=== PATIENT | female | born 1950 | race Caucasian/White ===

== ENCOUNTER 2016-12-22 20:16 | Observation (INO) | payer OTHER ==
[2016-12-22] MEDS ORDERED: ASPIRIN 81 MG CHEW PO STA (20:38)
[2016-12-22] MEDS ORDERED: NITROGLYCERIN SL TABS 0.4 MG TAB SUBLINGUAL STA ×3 (20:38)
--- NOTE | 2016-12-22 20:44 | ED ---
General Adult HPI - General Chief complaint: Back Pain/Injury Stated complaint: Chest/Back Pain Time Seen by Provider: 12/22/16 20:27 Source: patient, RN notes reviewed Mode of arrival: wheelchair Limitations: no limitations - History of Present Illness Initial comments: Patient is a pleasant 66-year-old female presenting to the emergency department with chest and back discomfort. Onset of symptoms was around 5 or 6. Patient has tightness in her chest. Patient has an ache in her back behind the chest region on the left. Patient states she may feel somewhat short of breath. Dyspnea has resolved with oxygen and discomfort has improved. Patient was a little bit sweaty and nauseated earlier. No history of similar symptoms previously. Patient does have a difficult time describing her symptoms. Patient states discomfort is not severe however she has a difficult time getting comfortable. Patient feels better when she holds her fist behind her back. Patient tried some honey at home and questions if that may have helped. Patient is unclear if change make symptoms better or worse however while taking a deep breath she states symptoms did worsen. - Related Data Home Medications Medication Instructions Recorded Confirmed Multivitamins, Thera [Multivitamin 1 tab PO DAILY 12/22/16 12/22/16 (formulary)] [place]-3 Fatty Acids/Fish Oil [Fish 1 cap PO DAILY 12/22/16 12/22/16 Oil 1,000 mg Softgel] Thyroid, Pork [[place] Thyroid] 15 mg PO DAILY 12/22/16 12/22/16 Timolol 0.5% Ophth Soln [Timoptic 1 drop BOTH EYES BID 12/22/16 12/22/16 0.5% Ophth Soln] Allergies Allergy/AdvReac Type Severity Reaction Status Date / Time No Known Allergies Allergy Verified 12/22/16 20:54 Review of Systems ROS Statement: Those systems with pertinent positive or pertinent negative responses have been documented in the HPI. ROS Other: All systems not noted in ROS Statement are negative. Constitutional: Denies: fever Eyes: Denies: eye pain ENT: Denies: ear pain Respiratory: Reports: dyspnea. Denies: cough Cardiovascular: Reports: chest pain Endocrine: Denies: fatigue Gastrointestinal: Reports: nausea. Denies: abdominal pain Genitourinary: Denies: dysuria Musculoskeletal: Reports: back pain Skin: Denies: rash Neurological: Denies: weakness Past Medical History Past Medical History: Thyroid Disorder History of Any Multi-Drug Resistant Organisms: None Reported Additional Past Surgical History / Comment(s): cyst removal from hand Past Psychological History: No Psychological Hx Reported Smoking Status: Never smoker Past Alcohol Use History: None Reported Past Drug Use History: None Reported General Exam Limitations: no limitations General appearance: alert, in no apparent distress Head exam: Present: atraumatic Eye exam: Present: normal appearance, PERRL ENT exam: Present: normal oropharynx Neck exam: Present: normal inspection Respiratory exam: Present: normal lung sounds bilaterally. Absent: chest wall tenderness Cardiovascular Exam: Present: regular rate, normal rhythm Expanded Peripheral pulses: 2+: Radial (R), Radial (L), Dorsalis Pedis (R), Dorsalis Pedis (L) GI/Abdominal exam: Present: soft. Absent: tenderness Extremities exam: Present: normal inspection. Absent: pedal edema, calf tenderness Back exam: Present: normal inspection. Absent: tenderness Neurological exam: Present: alert Psychiatric exam: Present: normal affect, normal mood Skin exam: Present: normal color Course Vital Signs 12/22/16 12/22/16 12/22/16 20:24 21:00 22:34 Temperature 97.4 F L 98.0 F Pulse Rate 67 88 62 Respiratory 18 18 18 Rate Blood Pressure 173/77 147/72 145/69 O2 Sat by Pulse 98 98 Oximetry 12/23/16 00:01 Temperature 97.8 F Pulse Rate 59 L Respiratory 18 Rate Blood Pressure 150/79 O2 Sat by Pulse 99 Oximetry - Reevaluation(s) Reevaluation #1: 12/22/16 21:20 Patient states she did get transient improvement with nitroglycerin. Discomfort currently rated 3/10. EKG Findings - EKG Comments: EKG Findings:: Normal sinus rhythm 65. [place] 162. QRS 82. QT 418. QTC 434. Normal axis. Normal QRS. No acute ST change. Medical Decision Making - Medical Decision Making Patient reevaluated and resting comfortably in bed. Patient updated on results and plan. Case discussed in detail with Dr. Alcala, who will admit for hospital call. - Lab Data Result diagrams: 12/22/16 20:35 12/22/16 20:35 Lab Results 12/22/16 12/22/16 12/22/16 Range/Units 20:35 20:35 20:35 WBC 7.7 (3.8-10.6) k/uL RBC 3.92 (3.80-5.40) m/uL Hgb 12.3 (11.4-16.0) gm/dL Hct 35.6 (34.0-46.0) % MCV 90.8 (80.0-100.0) fL MCH 31.3 (25.0-35.0) pg MCHC 34.4 (31.0-37.0) g/dL RDW 14.6 (11.5-15.5) % Plt Count 218 (150-450) k/uL Neutrophils % 64 % Lymphocytes % 25 % Monocytes % 6 % Eosinophils % 2 % Basophils % 1 % Neutrophils # 4.9 (1.3-7.7) k/uL Lymphocytes # 1.9 (1.0-4.8) k/uL Monocytes # 0.4 (0-1.0) k/uL Eosinophils # 0.1 (0-0.7) k/uL Basophils # 0.1 (0-0.2) k/uL PT (9.0-12.0) sec INR (<1.2) APTT (22.0-30.0) sec D-Dimer (<0.60) mg/L FEU Sodium 142 (137-145) mmol/L Potassium 4.2 (3.5-5.1) mmol/L Chloride 110 H (98-107) mmol/L Carbon Dioxide 22 (22-30) mmol/L Anion Gap 10 mmol/L BUN 24 H (7-17) mg/dL Creatinine 0.97 (0.52-1.04) mg/dL Est GFR (MDRD) Af Amer >60 (>60 ml/min/1.73 sqM) Est GFR (MDRD) Non-Af 58 (>60 ml/min/1.73 sqM) Glucose 84 (74-99) mg/dL Calcium 9.3 (8.4-10.2) mg/dL Magnesium 1.9 (1.6-2.3) mg/dL Total Bilirubin 0.6 (0.2-1.3) mg/dL AST 133 H (14-36) U/L ALT 88 H (9-52) U/L Alkaline Phosphatase 76 (38-126) U/L Total Creatine Kinase 86 (30-135) U/L CK-MB (CK-2) 1.4 (0.0-2.4) ng/mL CK-MB (CK-2) Rel Index 1.6 Troponin I <0.012 (0.000-0.034) ng/mL Total Protein 7.0 (6.3-8.2) g/dL Albumin 4.3 (3.5-5.0) g/dL Amylase 56 (30-110) U/L Lipase 186 (23-300) U/L 12/22/16 Range/Units 20:35 WBC (3.8-10.6) k/uL RBC (3.80-5.40) m/uL Hgb (11.4-16.0) gm/dL Hct (34.0-46.0) % MCV (80.0-100.0) fL MCH (25.0-35.0) pg MCHC (31.0-37.0) g/dL RDW (11.5-15.5) % Plt Count (150-450) k/uL Neutrophils % % Lymphocytes % % Monocytes % % Eosinophils % % Basophils % % Neutrophils # (1.3-7.7) k/uL Lymphocytes # (1.0-4.8) k/uL Monocytes # (0-1.0) k/uL Eosinophils # (0-0.7) k/uL Basophils # (0-0.2) k/uL PT 10.0 (9.0-12.0) sec INR 1.0 (<1.2) APTT 22.9 (22.0-30.0) sec D-Dimer 0.39 (<0.60) mg/L FEU Sodium (137-145) mmol/L Potassium (3.5-5.1) mmol/L Chloride (98-107) mmol/L Carbon Dioxide (22-30) mmol/L Anion Gap mmol/L BUN (7-17) mg/dL Creatinine (0.52-1.04) mg/dL Est GFR (MDRD) Af Amer (>60 ml/min/1.73 sqM) Est GFR (MDRD) Non-Af (>60 ml/min/1.73 sqM) Glucose (74-99) mg/dL Calcium (8.4-10.2) mg/dL Magnesium (1.6-2.3) mg/dL Total Bilirubin (0.2-1.3) mg/dL AST (14-36) U/L ALT (9-52) U/L Alkaline Phosphatase (38-126) U/L Total Creatine Kinase (30-135) U/L CK-MB (CK-2) (0.0-2.4) ng/mL CK-MB (CK-2) Rel Index Troponin I (0.000-0.034) ng/mL Total Protein (6.3-8.2) g/dL Albumin (3.5-5.0) g/dL Amylase (30-110) U/L Lipase (23-300) U/L - Radiology Data Radiology results: report reviewed (Computed tomography scan of the chest shows no evidence of pulmonary embolism. Cholelithiasis.), image reviewed (Chest x- ray shows no acute process.) Disposition Clinical Impression: Chest pain Disposition: ADMITTED IP TO THIS [facility] Referrals: Suleiman Mari DO [Primary Care Provider] - 1-2 days Decision Time: 00:19
[2016-12-22 20:52] LABS: Basophils # (A) 0.1 k/uL (0-0.2); Basophils % (A) 1 %; CH 32.1; CHCM 35.5; Eosinophils # (A) 0.1 k/uL (0-0.7); Eosinophils % (A) 2 %; HCT 35.6 % (34.0-46.0); HDW 2.72; HGB 12.3 gm/dL (11.4-16.0); Luc % (Auto) 3; Lymphocytes # (A) 1.9 k/uL (1.0-4.8); Lymphocytes % (A) 25 %; MCH 31.3 pg (25.0-35.0); MCHC 34.4 g/dL (31.0-37.0); MCV 90.8 fL (80.0-100.0); Mean Platelet Volume 7.8; Monocytes # (A) 0.4 k/uL (0-1.0); Monocytes % (A) 6 %; Neutrophils # (A) 4.9 k/uL (1.3-7.7); Neutrophils % (A) 64 %; RBC 3.92 m/uL (3.80-5.40); RDW 14.6 % (11.5-15.5); WBC 7.7 k/uL (3.8-10.6); WBC (Perox) 7.58
[2016-12-22 21:06] LABS: ALT 88 U/L (9-52); AST 133 U/L (14-36); Alkaline Phosphatase 76 U/L (38-126); Amylase 56 U/L (30-110); Anion Gap 10 mmol/L; Blood Urea Nitrogen 24 mg/dL (7-17); Calcium 9.3 mg/dL (8.4-10.2); Carbon Dioxide 22 mmol/L (22-30); Chloride 110 mmol/L (98-107); Glucose 84 mg/dL (74-99); Magnesium 1.9 mg/dL (1.6-2.3); Non-African American GFR(MDRD) 58 (>60 ml/min/1.73 sqM); Partial Thromboplastin Time 22.9 sec (22.0-30.0); Potassium 4.2 mmol/L (3.5-5.1); Sodium 142 mmol/L (137-145); Total Bilirubin 0.6 mg/dL (0.2-1.3)
--- NOTE | 2016-12-22 21:11 | XR ---
EXAMINATION TYPE: XR chest 2V DATE OF EXAM: 12/22/2016 COMPARISON: NONE HISTORY: Chest and back pain with nausea and dyspnea TECHNIQUE: Frontal and lateral views of the chest are obtained. FINDINGS: There is no focal air space opacity, pleural effusion, or pneumothorax seen. The cardiac silhouette size is within normal limits. The osseous structures are intact. IMPRESSION: No acute cardiopulmonary process.
[2016-12-22 21:13] LABS: Creatine Kinase 86 U/L (30-135)
[2016-12-22] MEDS ORDERED: RX INFO: IV CONTRAST WAS GIVEN 1 EACH MISC MISCELLANE PRN (21:18)
[2016-12-22] MEDS ORDERED: NITROGLYCERIN OINT 1 INCH/GM PACKET TOPICAL STA (21:20)
[2016-12-22 21:26] LABS: Creatine Kinase MB 1.4 ng/mL (0.0-2.4); Troponin I <0.012 ng/mL (0.000-0.034)
--- NOTE | 2016-12-22 23:22 | CT ---
EXAM: CT Angiography Chest With Intravenous Contrast CLINICAL HISTORY: Chest and back pain with nausea and dyspnea TECHNIQUE: Axial computed tomographic angiography images of the chest with intravenous contrast using pulmonary embolism protocol. DLP is 392.80 mGy-cm. This CT exam was performed using one or more of the following dose reduction techniques: automated exposure control, adjustment of the mA and/or kV according to patient size, and/or use of iterative reconstruction technique. MIP reconstructed images were created and reviewed. COMPARISON: No relevant prior studies available. FINDINGS: Pulmonary arteries: Flow artifact seen within the pulmonary arteries. No definitive evidence of a pulmonary embolism. Aorta: No acute findings. No thoracic aortic aneurysm. Lungs: Minimal dependent atelectasis is seen involving both lower lobes. Linear atelectasis seen in the right middle lobe. No mass. Pleural space: Unremarkable. No significant effusion. No pneumothorax. Heart: Unremarkable. No cardiomegaly. No significant pericardial effusion. No evidence of RV dysfunction. Bones/joints: Mild degenerative changes seen throughout the osseous structures. No acute fracture. No dislocation. Soft tissues: Unremarkable. Lymph nodes: Unremarkable. No grossly enlarged lymph nodes. Gallbladder and bile ducts: Cholelithiasis is seen. Small stones appear to be within the gallbladder neck. Subtle haziness surrounds the gallbladder. IMPRESSION: No definitive evidence for pulmonary embolism. Cholelithiasis. Small stones appear to be within the gallbladder neck, which may be impacted. Subtle haziness surrounds the gallbladder. Correlate clinically for early acute cholecystitis. Right upper quadrant ultrasound may be performed for further evaluation.
[2016-12-23] MEDS ORDERED: NITROGLYCERIN SL TABS 0.4 MG TAB SUBLINGUAL PRN (00:21)
[2016-12-23 02:04] VITALS: BMI 34.8
--- NOTE | 2016-12-23 02:34 | US ---
EXAM: US Abdomen Limited, Right Upper Quadrant CLINICAL HISTORY: Reason: Pain TECHNIQUE: Real-time ultrasound of the right upper quadrant with image documentation. COMPARISON: CTA of the chest performed 12/22/2016. FINDINGS: Liver: Unremarkable. No mass. No intrahepatic bile duct dilation. Gallbladder: Mobile stones are seen within dependent gallbladder. No evidence of gallbladder wall thickening or pericholecystic fluid. Common bile duct: The CBD measures up to 6.8 mm in diameter, which is at the upper limits of normal in patient of this age. No stones. Pancreas: Unremarkable as visualized. Right kidney: Unremarkable. No stones. No solid mass. No hydronephrosis. IMPRESSION: 1. CBD measures up to 6.8 mm in diameter, which is at the upper limits of normal in patient of this age. Nonemergent MRCP may be obtained for further evaluation, if clinically indicated. 2. Cholelithiasis. No evidence of acute cholecystitis.
[2016-12-23 03:16] LABS: Creatine Kinase 69 U/L (30-135)
[2016-12-23 03:30] LABS: Troponin I <0.012 ng/mL (0.000-0.034)
[2016-12-23] MEDS ORDERED: NITROGLYCERIN OINT 1 INCH/GM PACKET TOPICAL SCH (06:00)
[2016-12-23 08:43] LABS: Creatine Kinase 64 U/L (30-135)
[2016-12-23 08:54] LABS: Troponin I <0.012 ng/mL (0.000-0.034)
--- NOTE | 2016-12-23 10:16 | P.CRDCN ---
History of Present Illness Consult date: 12/23/16 History of present illness: This is a 66-year-old female. Past medical history significant for hypothyroidism. Patient presents with complaints of pain started in the left mid back region. She states it felt like somebody hit her in the back with a baseball bat. The pain subsequently radiated around to the left chest. Described by the patient has a stabbing pain localized under the left breast. She states this episode occurred while she was sitting down at a restaurant getting ready to eat. She states she went outside to get some fresh air and became extremely diaphoretic, nauseous and short of breath she states that everything was tightening up and she couldn't get any air in. The pain persisted until she presented to the emergency room a couple of hours later and received sublingual nitroglycerin. At this time she is chest pain-free continues to complain of soreness to the left mid back region. The pain to the back is reproducible and tender upon palpation. She also complains of epigastric and right upper quadrant tenderness on deep palpation. She states she is frequently belching as well. She denies any history of CAD. She states she underwent a stress test in the late 's and it was normal. She has never seen a database security administrator for any reason. EKG done shows normal sinus mechanism, rate of 65 beats per minute with non- specific T-wave abnormality. Troponins are normal x3. Chest x-ray showed no acute cardiopulmonary process. CTA negative for PE. Abdominal ultrasound shows gallbladder thickening, surgery has been consulted. Review of Systems REVIEW OF SYSTEMS: Patient denies any chest discomfort. No shortness of breath. No diaphoresis. Denies headache, dizziness, blurred vision, double vision. No dyspnea on exertion. Patient denies any stomach discomfort. No nausea, vomiting. No hematochezia. No hematemesis. Denies any black stools or blood in his stools. No syncope. No palpitations. No cough. No recent fever or chills. No muscle weakness or numbness. Continues to complain of ongoing left mid-back pain, reproducible and tender. Past Medical History Past Medical History: Thyroid Disorder Additional Past Medical History / Comment(s): Hypoglecemia, bronchitis History of Any Multi-Drug Resistant Organisms: None Reported Additional Past Surgical History / Comment(s): cyst removal from hand Past Anesthesia/Blood Transfusion Reactions: No Reported Reaction Past Psychological History: No Psychological Hx Reported Smoking Status: Never smoker Past Alcohol Use History: None Reported Past Drug Use History: None Reported Medications and Allergies Home Medications Medication Instructions Recorded Confirmed Type Multivitamins, Thera [Multivitamin 1 tab PO DAILY 12/22/16 12/23/16 History (formulary)] [place]-3 Fatty Acids/Fish Oil [Fish 1 cap PO DAILY 12/22/16 12/23/16 History Oil 1,000 mg Softgel] Thyroid, Pork [[place] Thyroid] 15 mg PO DAILY 12/22/16 12/23/16 History Timolol 0.5% Ophth Soln [Timoptic 1 drop BOTH EYES BID 12/22/16 12/23/16 History 0.5% Ophth Soln] Allergies Allergy/AdvReac Type Severity Reaction Status Date / Time No Known Allergies Allergy Verified 12/23/16 01:43 Physical Exam Vitals: Vital Signs Temp Pulse Pulse Resp BP BP Pulse Ox 12/23/16 08:00 98.3 F 64 16 143/70 98 12/23/16 01:57 98.2 F 59 L 18 139/60 98 12/23/16 00:01 97.8 F 59 L 18 150/79 99 12/22/16 22:34 98.0 F 62 18 145/69 98 12/22/16 21:00 88 18 147/72 98 12/22/16 20:24 97.4 F L 67 18 173/77 Intake and Output 12/22/16 12/23/16 12/23/16 22:59 06:59 14:59 Other: Weight 95.254 kg 98 kg GENERAL: This is a 66-year-old female in no apparent distress at the time of my examination. HEENT: Head is atraumatic, normocephalic. Pupils are equal, round. Sclerae anicteric. Conjunctivae are clear. Mucous membranes of the mouth are moist. Neck is supple. There is no jugular venous distention. No carotid bruit is heard. LUNGS: Clear to auscultation no wheezes, rales or rhonchi. No chest wall tenderness is noted on palpation or with deep breathing. HEART: Regular rate and rhythm without murmurs, rubs or gallops. S1 and S2 heard. ABDOMEN: Soft, mild right upper quadrant tenderness on deep palpation. Bowel sounds are heard. No organomegaly noted. EXTREMITIES: 2+ peripheral pulses with no evidence of peripheral edema and no calf tenderness noted. NEUROLOGIC: Patient is awake, alert and oriented x3. Results 12/22/16 20:35 12/22/16 20:35 Cardiac Enzymes 12/22/16 12/22/16 12/23/16 Range/Units 20:35 20:35 02:26 AST 133 H (14-36) U/L CK-MB (CK-2) 1.4 1.0 (0.0-2.4) ng/mL Troponin I <0.012 <0.012 (0.000-0.034) ng/mL 12/23/16 Range/Units 07:27 AST (14-36) U/L CK-MB (CK-2) 1.0 (0.0-2.4) ng/mL Troponin I <0.012 (0.000-0.034) ng/mL Coagulation 12/22/16 Range/Units 20:35 PT 10.0 (9.0-12.0) sec APTT 22.9 (22.0-30.0) sec CBC 12/22/16 Range/Units 20:35 WBC 7.7 (3.8-10.6) k/uL RBC 3.92 (3.80-5.40) m/uL Hgb 12.3 (11.4-16.0) gm/dL Hct 35.6 (34.0-46.0) % Plt Count 218 (150-450) k/uL Comprehensive Metabolic Panel 12/22/16 Range/Units 20:35 Sodium 142 (137-145) mmol/L Potassium 4.2 (3.5-5.1) mmol/L Chloride 110 H (98-107) mmol/L Carbon Dioxide 22 (22-30) mmol/L BUN 24 H (7-17) mg/dL Creatinine 0.97 (0.52-1.04) mg/dL Glucose 84 (74-99) mg/dL Calcium 9.3 (8.4-10.2) mg/dL AST 133 H (14-36) U/L ALT 88 H (9-52) U/L Alkaline Phosphatase 76 (38-126) U/L Total Protein 7.0 (6.3-8.2) g/dL Albumin 4.3 (3.5-5.0) g/dL Current Medications Generic Name Dose Route Start Last Admin Trade Name Freq PRN Reason Stop Dose Admin Aspirin 325 mg 12/24/16 09:00 Aspirin PO DAILY MARÍA ELENA Miscellaneous Information 1 each 12/22/16 21:18 12/22/16 22:37 Rx Info: Iv Contrast Was Given MISCELLANE 12/24/16 21:18 1 each DAILY PRN Administration Per Protocol Multivitamins 1 each 12/23/16 12:00 Theragran PO 1200 MARÍA ELENA Nitroglycerin 1 inch 12/23/16 06:00 12/23/16 06:15 Nitro-Bid Oint TOPICAL Not Given Q6HR MARÍA ELENA Nitroglycerin 0.4 mg 12/23/16 00:21 Nitrostat SUBLINGUAL Q5M PRN Chest Pain Sodium Chloride 10 ml 12/23/16 09:00 Saline Flush IV BID MARÍA ELENA Thyroid 15 mg 12/23/16 09:00 [place] Thyroid PO 0630 MARÍA ELENA Timolol Maleate 1 drops 12/23/16 09:00 Timoptic BOTH EYES BID MARÍA ELENA Intake and Output 12/22/16 12/23/16 12/23/16 22:59 06:59 14:59 Other: Weight 95.254 kg 98 kg 12/22/16 20:35 12/22/16 20:35 EKG Interpretations (text) EKG indicates a normal sinus mechanism with nonspecific ST abnormality. Assessment and Plan Plan: ASSESSMENT 1. Chest pain, atypical PLAN Obtain an echocardiogram to assess LV function. Patient is very active physically, she states she hikes 4 miles 3 times per week. If she should need surgery to remove her gallbladder she remains an average risk. We will also add metoprolol 12.5 mg by mouth twice a day. Obtain Lexiscan tomorrow once a. NPO after midnight. Nurse Practitioner note has been reviewed, I agree with a documented findings and plan of care. Patient was seen and examined.
[2016-12-23] MEDS: TIMOLOL 0.5% OPHTH DROPS 5 ML BTL BOTH EYES SCH ×2 (10:30→19:54)
[2016-12-23] MEDS: THYROID, PORK 30 MG TAB PO SCH (10:31)
--- NOTE | 2016-12-23 10:51 | P.GSCN ---
<Franchesca Roman - Last Filed: 12/23/16 10:32> History of Present Illness Consult date: 12/23/16 Reason for Consult: Ultrasound abdomen, and bile duct upper limits of normal History of present illness: 66 year old female presented to the emergency room on December 23 with a chief complaint of developing left mid upper back pain radiating to the left breast related with a sensation of nausea and diaphoresis. Given the above clinical presentation patient presented to be evaluated. The attending has requested a surgical eval for workup for the above-mentioned symptoms. Patient states that for the last year on and off would get left mid back pain felt like a pressure she placed her fist to the area pressed it and it would cause her to belch the discomfort would decrease go away. Was concerned that with this episode felt a sensation of nausea with diaphoresis also a sensation of not being able to catch a breath. When questioning patient patient is denying any right abdominal discomfort. Patient has no significant past surgical history. Patient states last colonoscopy was within the last year done in the [facility] was told there was no abnormality. Patient states continues to have left upper back pressure feeling. Continues to report if she places her hand to the area causes belching. Patient states is a nonsmoker no alcohol and is an active individual is able to walk several miles a week with no chest pain or shortness of breath No family history of coronary artery disease Patient did have a computed tomography scan of the of the chest. No evidence of a pulmonary emboli. Small stones appear to be within the gallbladder neck which may be impacted. Correlate for early acute cholecystitis this was followed up with an ultrasound of the right upper quadrant in summary common bile duct measures up to 6.8 mm in diameter which is in the upper limits of normal. No evidence of acute cholecystitis Labs were reviewed the AST 133, ALT 88. Troponins were negative. Lipase 186. Amylase 56. Total bilirubin 0.6 Review of Systems Essentially unremarkable except as mentioned in the present illness Past Medical History Past Medical History: Thyroid Disorder Additional Past Medical History / Comment(s): Hypoglecemia, bronchitis History of Any Multi-Drug Resistant Organisms: None Reported Additional Past Surgical History / Comment(s): cyst removal from hand Past Anesthesia/Blood Transfusion Reactions: No Reported Reaction Past Psychological History: No Psychological Hx Reported Smoking Status: Never smoker Past Alcohol Use History: None Reported Past Drug Use History: None Reported Medications and Allergies Home Medications Medication Instructions Recorded Confirmed Type Multivitamins, Thera [Multivitamin 1 tab PO DAILY 12/22/16 12/23/16 History (formulary)] [place]-3 Fatty Acids/Fish Oil [Fish 1 cap PO DAILY 12/22/16 12/23/16 History Oil 1,000 mg Softgel] Thyroid, Pork [[place] Thyroid] 15 mg PO DAILY 12/22/16 12/23/16 History Timolol 0.5% Ophth Soln [Timoptic 1 drop BOTH EYES BID 12/22/16 12/23/16 History 0.5% Ophth Soln] Calcium Citrate/Vitamin D3 2 cap PO HS 12/23/16 12/23/16 History [Calcitrate + Vit D Caplet] Chromium Picolinate 500 mcg PO DAILY 12/23/16 12/23/16 History Allergies Allergy/AdvReac Type Severity Reaction Status Date / Time No Known Allergies Allergy Verified 12/23/16 01:43 Surgical - Exam Vital Signs Temp Pulse Resp BP 97.4 F L 67 18 173/77 12/22/16 20:24 12/22/16 20:24 12/22/16 20:24 12/22/16 20:24 GENERAL APPEARANCE: Pleasant 66-year-old female patient is alert, oriented, 3 in no acute distress. VITAL SIGNS: Reviewed HEENT: Head is normocephalic and atraumatic. Pupils are equal and reactive. The nares are patent. Oropharynx is clear without lesions. NECK: Supple without lymphadenopathy. Traches midline. HEART: S1, S2. Regular rate and rhythm. Denying chest pain no murmur LUNGS: No crackles or wheezes are heard. Adequate air movement bilaterally no wheezing no cough no shortness of breath ABDOMEN: Soft, mild right upper quadrant tenderness with deep palpitation no rebound .nondistended with good bowel sounds. No peritoneal signs. No palpable organomegaly or masses. Reports no nausea no vomiting no stool no difficulty in urinating Chest left upper back tenderness with palpitation EXTREMITIES: Normal skin color and turgor. No cyanosis, rash, ulceration, clubbing or edema. Radial pedal pulses are 2/4 bilaterally. NEUROLOGICAL: No focal deficits. Strength and sensation are grossly intact. Results - Labs 12/22/16 20:35 12/22/16 20:35 Abnormal Lab Results - Last 24 Hours (Table) 12/22/16 Range/Units 20:35 Chloride 110 H (98-107) mmol/L BUN 24 H (7-17) mg/dL AST 133 H (14-36) U/L ALT 88 H (9-52) U/L Diabetes panel 12/22/16 Range/Units 20:35 Sodium 142 (137-145) mmol/L Potassium 4.2 (3.5-5.1) mmol/L Chloride 110 H (98-107) mmol/L Carbon Dioxide 22 (22-30) mmol/L BUN 24 H (7-17) mg/dL Creatinine 0.97 (0.52-1.04) mg/dL Glucose 84 (74-99) mg/dL Calcium 9.3 (8.4-10.2) mg/dL AST 133 H (14-36) U/L ALT 88 H (9-52) U/L Alkaline Phosphatase 76 (38-126) U/L Total Protein 7.0 (6.3-8.2) g/dL Albumin 4.3 (3.5-5.0) g/dL Calcium panel 12/22/16 Range/Units 20:35 Calcium 9.3 (8.4-10.2) mg/dL Albumin 4.3 (3.5-5.0) g/dL Pituitary panel 12/22/16 Range/Units 20:35 Sodium 142 (137-145) mmol/L Potassium 4.2 (3.5-5.1) mmol/L Chloride 110 H (98-107) mmol/L Carbon Dioxide 22 (22-30) mmol/L BUN 24 H (7-17) mg/dL Creatinine 0.97 (0.52-1.04) mg/dL Glucose 84 (74-99) mg/dL Calcium 9.3 (8.4-10.2) mg/dL Adrenal panel 12/22/16 Range/Units 20:35 Sodium 142 (137-145) mmol/L Potassium 4.2 (3.5-5.1) mmol/L Chloride 110 H (98-107) mmol/L Carbon Dioxide 22 (22-30) mmol/L BUN 24 H (7-17) mg/dL Creatinine 0.97 (0.52-1.04) mg/dL Glucose 84 (74-99) mg/dL Calcium 9.3 (8.4-10.2) mg/dL Total Bilirubin 0.6 (0.2-1.3) mg/dL AST 133 H (14-36) U/L ALT 88 H (9-52) U/L Alkaline Phosphatase 76 (38-126) U/L Total Protein 7.0 (6.3-8.2) g/dL Albumin 4.3 (3.5-5.0) g/dL Assessment and Plan Plan: Impression Present on admission left upper back discomfort unclear etiology Hypothyroid on supplements Present on admission atypical chest pain with negative cardiac troponins 2 Elevated AST and ALT CAT scan chest gallstones within the gallbladder neck suspect cholelithiasis Present on admission right upper quadrant pain suspect due to cholelithiasis with small gallstones within the gallbladder neck as evident on computed tomography scan of the chest Ultrasound of the right upper quadrant gallbladder common bile duct dilated upper limits of normal Plan Cardiology recommendations noted appreciated and reviewed, echocardiogram to assess LV function, low dose beta etelvina, Lexiscan appropriate, Cardiology if cholecystectomy is indicated patients at average risk Pain control keep nothing by mouth until a decision is made regards to the timing of a lap cholecystectomy if indicated IV fluid for hydration Repeat labs in the morning Further recommendations pending DVT and GI prophylaxis The above impression and plan of care have been discussed and directed by signing physician. Franchesca Roman nurse practitioner acting as scribe for signing physician. <Alis Williamson - Last Filed: 12/23/16 21:35> Surgical - Exam Vital Signs Temp Pulse Resp BP 97.4 F L 67 18 173/77 12/22/16 20:24 12/22/16 20:24 12/22/16 20:24 12/22/16 20:24 Results - Labs 12/22/16 20:35 12/22/16 20:35 Assessment and Plan Plan: Patient examined. Incidental finding of gallstones. Undergoing cardiac work up. No indication for emergency cholecystectomy. Plan for lap gilberto as outpatient.
[2016-12-23] MEDS ORDERED: CHROMIUM PICOLINATE 500 MCG PO SCH (12:30)
--- NOTE | 2016-12-23 12:43 | P.HPIM ---
History of Present Illness H&P Date: 12/23/16 Chief Complaint: Chest pain This is 66-year-old female comes in the hospital with the acute onset pain that it initially started on the left paraspinal region in the thoracic spine radiated to the front underneath her breasts. Patient was evident part-time breathing at that time and also noted to have some nausea at doing that. Did also describe some clamminess pain did not radiate to her shoulders or her arms. The pain lasted for about 2 hours thereafter patient noted some relief with nitroglycerin sublingual tablets Patient comes in to the hospital for further evaluation EKG didn't did not reveal ST-T wave changes Cardiac enzymes 3 have been negative Patient has had an episode of chest pain 20 years ago for which she underwent a stress test which was negative Does not smoke no significant family history is reported Patient states that she is symptom-free at this time does complain of a tender point and the paraspinal region where the pain initially started Patient initially underwent a CT angiogram which was negative for pulmonary embolism. However gallstones were noted with some thickening a ultrasound was then done to rule out acute cholecystitis which did not reveal inflammatory changes however there is mild dilatation of CBD around 5.6 mm and gallstones. Review of Systems All systems: negative (Noted in HPI) Past Medical History Past Medical History: Thyroid Disorder Additional Past Medical History / Comment(s): Hypoglecemia, bronchitis History of Any Multi-Drug Resistant Organisms: None Reported Additional Past Surgical History / Comment(s): cyst removal from hand Past Anesthesia/Blood Transfusion Reactions: No Reported Reaction Past Psychological History: No Psychological Hx Reported Smoking Status: Never smoker Past Alcohol Use History: None Reported Past Drug Use History: None Reported Medications and Allergies Home Medications Medication Instructions Recorded Confirmed Type Multivitamins, Thera [Multivitamin 1 tab PO DAILY 12/22/16 12/23/16 History (formulary)] [place]-3 Fatty Acids/Fish Oil [Fish 1 cap PO DAILY 12/22/16 12/23/16 History Oil 1,000 mg Softgel] Thyroid, Pork [[place] Thyroid] 15 mg PO DAILY 12/22/16 12/23/16 History Timolol 0.5% Ophth Soln [Timoptic 1 drop BOTH EYES BID 12/22/16 12/23/16 History 0.5% Ophth Soln] Calcium Citrate/Vitamin D3 2 cap PO HS 12/23/16 12/23/16 History [Calcitrate + Vit D Caplet] Chromium Picolinate 500 mcg PO DAILY 12/23/16 12/23/16 History Allergies Allergy/AdvReac Type Severity Reaction Status Date / Time No Known Allergies Allergy Verified 12/23/16 01:43 Physical Exam Vitals: Vital Signs Temp Pulse Pulse Resp BP BP Pulse Ox 12/23/16 12:00 61 16 12/23/16 11:41 98.3 F 61 16 142/74 95 12/23/16 08:00 98.3 F 64 16 143/70 98 12/23/16 01:57 98.2 F 59 L 18 139/60 98 12/23/16 00:01 97.8 F 59 L 18 150/79 99 12/22/16 22:34 98.0 F 62 18 145/69 98 12/22/16 21:00 88 18 147/72 98 12/22/16 20:24 97.4 F L 67 18 173/77 Intake and Output 12/22/16 12/23/16 12/23/16 22:59 06:59 14:59 Other: Voiding Method Toilet Weight 95.254 kg 98 kg Physical exam Gen. appearance oriented 3 in no distress Neck is supple no JVD Lungs good air entry clear to auscultation no rhonchi or wheezing Heart S1-S2 heard regular rate and rhythm no murmurs appreciated Abdomen is soft nontender no organomegaly bowel sounds are intact Musculoskeletal around T10 paraspinal region there is a tender spot reproducible pain Neurologically cranial nerves II-12 grossly intact no focal motor or sensory deficits noted Skin no abnormalities appreciated Results CBC & Chem 7: 12/22/16 20:35 12/22/16 20:35 Labs: Abnormal Lab Results - Last 24 Hours (Table) 12/22/16 Range/Units 20:35 Chloride 110 H (98-107) mmol/L BUN 24 H (7-17) mg/dL AST 133 H (14-36) U/L ALT 88 H (9-52) U/L Thrombosis Risk Factor Assmnt - Choose All That Apply Any of the Below Risk Factors Present?: No Each Risk Factor Represents 2 Points: Age 61-74 years Thrombosis Risk Factor Assessment Total Risk Factor Score: 2 Thrombosis Risk Factor Assessment Level: Low Risk Assessment and Plan Plan: #1 atypical chest pain ACS is ruled out #2 hypothyroidism #3 obesity with a BMI of 34.9 #4 incidental findings of cholelithiasis Plan Patient has vague symptoms of chest pain however is physically active and walks about 4 miles 3 times a week without any recurrence of the symptoms it appears he likely is musculoskeletal type of pain however patient did have some diaphoresis hence a stress test would be indicated. Did discuss her general surgery as well patient would like to follow up on an outpatient basis did discuss with cholelithiasis there is always a chance of gallstone pancreatitis patient verbalized understanding this would like a stress test to be done thereafter states that she would follow up with her doctor
--- NOTE | 2016-12-23 13:22 | ECHOF ---
Referral Reason:pain/shortness of breath/post procedure MEASUREMENTS -------- HEIGHT: 167.6 cm WEIGHT: 98.0 kg BP: 143/70 IVSd: 1.6 cm (0.6 - 1.1) LVIDd: 2.4 cm (3.9 - 5.3) LVPWd: 1.4 cm (0.6 - 1.1) IVSs: 1.9 cm LVIDs: 1.2 cm LVPWs: 1.8 cm Ao Diam: 2.9 cm (2.0 - 3.7) AV Cusp: 1.8 cm (1.5 - 2.6) LA Diam: 2.4 cm (2.7 - 3.8) MV EXCURSION: 18.221 mm (> 18.000) MV EF SLOPE: 75 mm/s (70 - 150) EPSS: 0.2 cm MV E [place]: 0.79 m/s MV DecT: 293 ms MV A [place]: 0.90 m/s MV E/A Ratio: 0.89 RAP: 5.00 mmHg RVSP: 10.90 mmHg FINDINGS -------- Sinus rhythm. This was a technically good study. There is moderate concentric left ventricular hypertrophy. Overall left ventricular systolic function is normal with, an EF between 55 - 60 %. The right ventricle is normal in size and function. The left atrium is normal in size. The right atrium is normal in size. The aortic valve is trileaflet, and appears structurally normal. No aortic stenosis or regurgitation. There is trace mitral regurgitation. Trace tricuspid regurgitation present. The right ventricular systolic pressure, as measured by Doppler, is 10.90mmHg. Pulmonic valve appears structurally normal. The aortic root size is normal. The pericardium is normal. CONCLUSIONS -------- 1. Sinus rhythm. 2. Trace tricuspid regurgitation present. 3. The right ventricular systolic pressure, as measured by Doppler, is 10.90mmHg. 4. Pulmonic valve appears structurally normal. 5. The aortic root size is normal. 6. The pericardium is normal. 7. This was a technically good study. 8. There is moderate concentric left ventricular hypertrophy. 9. Overall left ventricular systolic function is normal with, an EF between 55 - 60 %. 10. The right ventricle is normal in size and function. 11. The left atrium is normal in size. 12. The right atrium is normal in size. 13. The aortic valve is trileaflet, and appears structurally normal. No aortic stenosis or regurgitation. 14. There is trace mitral regurgitation. SCREEN MAKING TECHNICIAN: Irina Rodriguez RDCS
[2016-12-23] MEDS: METOPROLOL TARTRATE 12.5 MG TAB PO SCH ×2 (13:24→22:36)
[2016-12-23] MEDS: MULTIVITAMINS, THERA 1 EACH TAB PO SCH (13:28)
[2016-12-23] MEDS: CALCIUM CARB-VIT D 500MG-200UN 1 EACH TAB PO SCH ×2 (19:53→22:36)
[2016-12-23] MEDS: HEPARIN SODIUM,PORCINE 5,000 UNIT/ML 1 ML VIAL SQ SCH (22:36)
[2016-12-24 01:55] LABS: Cholesterol 189 mg/dL (<200); HDL Cholesterol 51 mg/dL (40-60)
[2016-12-24] MEDS ORDERED: AMINOPHYLLINE 500 MG/20 ML VIAL IV PRN (05:00)
[2016-12-24] MEDS ORDERED: REGADENOSON 0.4 MG/5 ML SYRINGE IV ONE (09:00)
--- NOTE | 2016-12-24 09:54 | NM ---
EXAMINATION TYPE: NM stress cardiolite complete DATE OF EXAM: 12/24/2016 COMPARISON: NONE HISTORY: Precordial chest pain and abnormal EKG TECHNIQUE: After the intravenous administration of 10.9 mCi Tc 99m Sestamibi - Rest images obtained 55 minutes post injection. The patient exercised using a KATHY protocol and 1 minute prior to peak exercise was injected with 27.2 mCi Tc 99m Sestamibi - Stress images obtained 10 minutes post injecti on. FINDINGS: Targeted heart rate was achieved during performance of the study. Review of stress and rest SPECT pelon ges demonstrates predominantly fixed defect anteroseptal wall. Vague area of decreased perfusion ante rior lateral wall on stress images may reflect stress-induced ischemia. Gated analysis shows normal w all motion with an estimated left ventricular ejection fraction of 63 %. IMPRESSION: Vague area of decreased perfusion anterior lateral wall on stress images may reflect stress-induced i schemia.
[2016-12-24] MEDS: METOPROLOL TARTRATE 12.5 MG TAB PO SCH ×2 (09:56→21:02)
[2016-12-24] MEDS: ASPIRIN 325 MG TAB PO SCH (09:56)
[2016-12-24] MEDS: THYROID, PORK 30 MG TAB PO SCH (09:56)
[2016-12-24] MEDS: HEPARIN SODIUM,PORCINE 5,000 UNIT/ML 1 ML VIAL SQ SCH ×2 (09:56→21:02)
[2016-12-24] MEDS: TIMOLOL 0.5% OPHTH DROPS 5 ML BTL BOTH EYES SCH ×2 (09:57→20:55)
[2016-12-24] MEDS: amLODIPine 5 MG TAB PO SCH (10:04)
--- NOTE | 2016-12-24 12:38 | EST ---
EXERCISE STRESS AGE:: 66 SEX:: F HT:: 5'6" WT:: 216 PROTOCOL:: Shmuel Cardiolite Stress Test STAGE:: 2 DURATION OF EXERCISE:: 5:26 HEART RATE REST:: 68 BLOOD PRESSURE REST:: 118/81 MAXIMUM HEART RATE ACHIEVED:: 148 MAXIMUM BLOOD PRESSURE:: 253/91 85% MPHR:: 133 100% MPHR:: 146 METS:: 4.7 INDICATIONS:: Chest pain. CLINICAL INFORMATION:: Baseline EKG revealed a sinus mechanism with LVH by voltage criteria and nonspecific ST abnormality. Patient walked on a standard Shmuel protocol for 5 minutes 26 seconds. Developed hypertensive response, complained of some wheezing but did not have angina. EKG remained inconclusive. There was no significant arrhythmia. Maximal heart rate was well above 85% of predicted maximal at 148 beats per minute. By EKG criteria, this is a inconclusive stress test because of resting EKG changes. Patient did not have any clear-cut angina. She had a hypertensive response to exercise. The nuclear scan results which are more support will be reported by the radiologist. DELL / YAELN: [id number] /
[2016-12-24] MEDS: MULTIVITAMINS, THERA 1 EACH TAB PO SCH (13:19)
--- NOTE | 2016-12-24 13:25 | P.PN ---
Progress Note - Text Patient seen this morning resting in bed. Patient is scheduled tomorrow to have a heart catheterization by cardiology service for an abnormal Lexiscan. Did discuss with the patient that the the incidental findings of gallstones could be followed in the outpatient setting with possible laparoscopic cholecystectomy indicated. There was no indication for emergency cholecystectomy at this time we'll sign off patient will be seen in Dr. ching office in the outpatient setting in 2-3 weeks The above impression and plan of care have been discussed and directed by signing physician. Franchesca Roman nurse practitioner acting as scribe for signing physician.
[2016-12-24] MEDS ORDERED: ALPRAZolam 0.25 MG TAB PO PRN (14:32)
[2016-12-24] MEDS ORDERED: ALPRAZolam 0.5 MG TAB PO PRN (14:32)
[2016-12-24] MEDS ORDERED: SODIUM CHLORIDE 0.9% 1,000 ML in EMPTY BAG 1 BAG IV ONE (14:32)
--- NOTE | 2016-12-24 18:21 | P.PN ---
Subjective This is 66-year-old female comes in the hospital with the acute onset pain that it initially started on the left paraspinal region in the thoracic spine radiated to the front underneath her breasts. Patient was evident part-time breathing at that time and also noted to have some nausea at doing that. Did also describe some clamminess pain did not radiate to her shoulders or her arms. The pain lasted for about 2 hours thereafter patient noted some relief with nitroglycerin sublingual tablets Patient comes in to the hospital for further evaluation EKG didn't did not reveal ST-T wave changes Cardiac enzymes 3 have been negative Patient has had an episode of chest pain 20 years ago for which she underwent a stress test which was negative Does not smoke no significant family history is reported Patient states that she is symptom-free at this time does complain of a tender point and the paraspinal region where the pain initially started Patient initially underwent a CT angiogram which was negative for pulmonary embolism. However gallstones were noted with some thickening a ultrasound was then done to rule out acute cholecystitis which did not reveal inflammatory changes however there is mild dilatation of CBD around 5.6 mm and gallstones. 12/24/2016 Patient denies having any recurrence of symptoms Patient was only able to walk about 5 minutes and 30 seconds on modified Shmuel protocol apparently patient was noted to have increased blood pressure and some dyspnea. Physical exam Gen. appearance oriented 3 in no distress Neck is supple no JVD Lungs good air entry clear to auscultation no rhonchi or wheezing Heart S1-S2 heard regular rate and rhythm no murmurs appreciated Abdomen is soft nontender no organomegaly bowel sounds are intact Musculoskeletal around T10 paraspinal region there is a tender spot reproducible pain Neurologically cranial nerves II-12 grossly intact no focal motor or sensory deficits noted Skin no abnormalities appreciated Assessment and Plan Plan: #1 atypical chest pain ACS is ruled out #2 hypothyroidism #3 obesity with a BMI of 34.9 #4 incidental findings of cholelithiasis Plan Nuclear stress was noted to have some abnormality. Poor exercise tolerance Patient is anxious about undergoing the stress test did discuss the importance of ruling out underlying coronary disease Vitals are stable Objective - Vital Signs Vital signs: Vital Signs Temp 98.3 F 12/24/16 15:54 Pulse 67 12/24/16 15:54 Resp 18 12/24/16 15:54 BP 140/69 12/24/16 15:54 Pulse Ox 96 12/24/16 15:54 Intake & Output 12/23/16 12/24/16 12/24/16 18:59 06:59 18:59 Intake Total 480 240 Balance 480 240 Weight 98 kg Intake: Oral 480 240 Other: Voiding Method Toilet Toilet Toilet # Voids 1 - Labs CBC & Chem 7: 12/22/16 20:35 12/22/16 20:35 Labs: Abnormal Lab Results - Last 24 Hours (Table) 12/23/16 Range/Units 07:27 Triglycerides 226 H (<150) mg/dL
--- NOTE | 2016-12-24 19:29 | PN ---
PROGRESS NOTE This is a 66-year-old lady whom I saw yesterday. She presented with very nondescript atypical symptoms. She had gallbladder issues as well. However, she was pain-free. Troponins were unremarkable. I performed a stress test today. EKG part of the stress test was inconclusive. She had hypertensive response per the nuclear study suggesting lateral wall ischemia. I discussed the findings in detail with the patient, and I advised her to have coronary angiography as an option. The second option was to pursue medical therapy with aspirin and beta blockers and have her see her own doctor in the [facility]. However, after some deliberation she wishes to proceed with cardiac cath, fully understands the risks, benefits, options and rationale related to the cardiac cath and possible PCI. I have asked her to be placed on beta etelvina and Norvasc, but she is reluctant to take this. She does not want to take any additional medicines other than her [place] Thyroid. I suspect her blood pressure control is suboptimal. After due discussion, patient understands all details and wishes proceed with cardiac cath. She is fully aware of the risks, benefits, options, and the procedure will be performed tomorrow at 9 a.m. In the interim, we will leave her on IV fluids, and I have encouraged her to take the beta etelvina, aspirin and Norvasc. She does not want to take any statin agents at this time. PHYSICAL EXAMINATION: Vital signs are stable. S1, S2 heard normally. Lungs are clear. Abdomen and lower extremity exam was unchanged. MMODL / IJN: [id number] /
[2016-12-24 19:48] VITALS: RESP 16
[2016-12-24] MEDS ORDERED: ATORVASTATIN 80 MG TAB PO SCH (21:00)
[2016-12-24] MEDS: CALCIUM CARB-VIT D 500MG-200UN 1 EACH TAB PO SCH (21:02)
[2016-12-25] MEDS: ASPIRIN 325 MG TAB PO SCH (06:43)
[2016-12-25] MEDS ORDERED: SODIUM CHLORIDE 0.9% 1,000 ML IV ONE (09:02)
[2016-12-25] MEDS ORDERED: MIDAZOLAM 2 MG/2 ML VIAL IV ONE (09:38)
[2016-12-25] MEDS ORDERED: diphenhydrAMINE 50 MG/ML 1 ML VIAL IVP ONE (09:38)
[2016-12-25] MEDS ORDERED: LIDOCAINE 2% INJ 20 MG/ML SQ ONE (09:45)
[2016-12-25] MEDS: VERAPAMIL SYRINGE (5 MG/10 ML) INTRAARTER ONE ×2 (09:50→10:03)
[2016-12-25] MEDS ORDERED: HEPARIN SODIUM 1,000 UN/ML (10ML VL) IV ONE (09:51)
[2016-12-25] MEDS ORDERED: fentaNYL (PF) 50 MCG/ML 2 ML AMP IV ONE (09:53)
[2016-12-25] MEDS ORDERED: IOHEXOL 350 MG/ML 100 ML BOTTLE INJ ONE (10:03)
[2016-12-25] MEDS: THYROID, PORK 30 MG TAB PO SCH (10:37)
[2016-12-25] MEDS ORDERED: SODIUM CHLORIDE 0.9% 1,000 ML IV SCH (11:00)
[2016-12-25] MEDS: METOPROLOL TARTRATE 12.5 MG TAB PO SCH (11:27)
[2016-12-25] MEDS: amLODIPine 5 MG TAB PO SCH (11:27)
[2016-12-25] MEDS: HEPARIN SODIUM,PORCINE 5,000 UNIT/ML 1 ML VIAL SQ SCH (11:28)
[2016-12-25] MEDS ORDERED: METOPROLOL TARTRATE 12.5 MG TAB PO SCH (11:30)
[2016-12-25] MEDS: TIMOLOL 0.5% OPHTH DROPS 5 ML BTL BOTH EYES SCH (13:04)
--- NOTE | 2016-12-25 14:18 | P.PN ---
Subjective This is a 66-year-old female who is going for cardiac catheterization today after a positive cardiolyte test yesterday. She presented with nondescript, atypical symptoms. Surgery was also seeing the pt for gallbladder concerns as well. At this time they have decided to forego any further surgical intervention until this cardiac concern has been addressed. The procedure has been explained to the patient at length and questions answered appropriately. The patient verbalizes many concerns regarding medications and does not want to take anything. She prefers the holistic approach and wants to consult with her PCP prior to adding anything. The risks of uncontrolled hypertension have been explained to the patient with verbalized understanding. Objective - Vital Signs Vital signs: Vital Signs Temp 98.1 F 12/25/16 10:30 Pulse 67 12/25/16 12:15 Resp 16 12/25/16 10:30 BP 148/89 12/25/16 12:15 Pulse Ox 99 12/25/16 12:15 Intake & Output 12/24/16 12/25/16 12/25/16 18:59 06:59 18:59 Intake Total 600 200 Balance 600 200 Weight 98 kg Intake: IV 200 Oral 600 Other: Voiding Method Toilet Toilet Toilet # Voids 1 1 - Exam GENERAL: Well-appearing, well-nourished and in no acute distress. NECK: Supple without JVD or thyromegaly. LUNGS: Breath sounds clear to auscultation bilaterally. Respiration equal and unlabored. No wheezes, rales or rhonchi. HEART: Regular rate and rhythm without murmurs, rubs or gallops. S1 and S2 heard. EXTREMITIES: Normal range of motion, no edema. No clubbing or cyanosis. Peripheral pulses intact and strong. - Labs CBC & Chem 7: 12/22/16 20:35 12/22/16 20:35 Assessment and Plan Plan: ASSESSMENT 1. Chest pain, atypical. Positive nuclear stress test. 2. Essential hypertension, uncontrolled with signs of cardiac damage. LVH on echo. PLAN I have discussed the risks, benefits and alternative therapies for the above- mentioned procedure and for both sedation/analgesia as well as necessary blood product administration, if indicated, as they pertain to this patient. The patient has indicated understanding and acceptance of the risks and procedures discussed. She will undergo cardiac catheterization today. If this is normal she can be discharged home 6 hours after hemostasis. She has been advised again of the importance of taking medications as prescribed. Nurse Practitioner note has been reviewed, I agree with a documented findings and plan of care. Patient was seen and examined.
[2016-12-25 15:48] VITALS: BP 142/77; PULSE 59; TEMP 98.8
[2016-12-25] MEDS: MULTIVITAMINS, THERA 1 EACH TAB PO SCH (17:27)
--- NOTE | 2016-12-25 19:19 | P.DS ---
Providers Date of admission: 12/23/16 00:21 Attending physician: Mirta Alcala Consults: 12/23/16 00:21 Consult Physician Urgent Consulting Provider: Alis Williamson Consult Reason/Comments: Cholelithiasis Do you want consulting provider notified?: Yes Consult Physician Urgent Consulting Provider: Jaxson Nowak Consult Reason/Comments: cp Do you want consulting provider notified?: Yes Primary care physician: Suleiman Mari Hospital Course: This is 66-year-old female comes in the hospital with the acute onset pain that it initially started on the left paraspinal region in the thoracic spine radiated to the front underneath her breasts. Patient was evident part-time breathing at that time and also noted to have some nausea at doing that. Did also describe some clamminess pain did not radiate to her shoulders or her arms. The pain lasted for about 2 hours thereafter patient noted some relief with nitroglycerin sublingual tablets Patient comes in to the hospital for further evaluation EKG didn't did not reveal ST-T wave changes Cardiac enzymes 3 have been negative Patient has had an episode of chest pain 20 years ago for which she underwent a stress test which was negative Does not smoke no significant family history is reported Patient states that she is symptom-free at this time does complain of a tender point and the paraspinal region where the pain initially started Patient initially underwent a CT angiogram which was negative for pulmonary embolism. However gallstones were noted with some thickening a ultrasound was then done to rule out acute cholecystitis which did not reveal inflammatory changes however there is mild dilatation of CBD around 5.6 mm and gallstones. 12/24/2016 Patient denies having any recurrence of symptoms Patient was only able to walk about 5 minutes and 30 seconds on modified Shmuel protocol apparently patient was noted to have increased blood pressure and some dyspnea. Physical exam Gen. appearance oriented 3 in no distress Neck is supple no JVD Lungs good air entry clear to auscultation no rhonchi or wheezing Heart S1-S2 heard regular rate and rhythm no murmurs appreciated Abdomen is soft nontender no organomegaly bowel sounds are intact Musculoskeletal around T10 paraspinal region there is a tender spot reproducible pain Neurologically cranial nerves II-12 grossly intact no focal motor or sensory deficits noted Skin no abnormalities appreciated Assessment and Plan Plan: #1 atypical chest pain ACS is ruled out #2 hypothyroidism #3 obesity with a BMI of 34.9 #4 incidental findings of cholelithiasis #5 transaminitis Plan Underwent a cardiac catheterization without any significant coronary disease Patient is recommended to have good blood pressure control her clinical assistant is discuss the importance of continuing metoprolol however patient was uncomfortable and taken the medication will increase her Norvasc to 10 mg did discuss following up with her primary care physician Did answer all her questions in regards to liver disease and gallbladder disease patient is to follow-up with the general surgery for cholecystectomy on outpatient basis Did discuss the most likely etiology of her liver disease could be Saez diet change was also recommended However she should have further workup including a hepatitis panel on outpatient basis. Plan - Discharge Summary New Discharge Prescriptions: Continue Timolol 0.5% Ophth Soln [Timoptic 0.5% Ophth Soln] 1 drop BOTH EYES BID Thyroid, Pork [Fertile Thyroid] 15 mg PO DAILY Eden-3 Fatty Acids/Fish Oil [Fish Oil 1,000 mg Softgel] 1 cap PO DAILY Multivitamins, Thera [Multivitamin (formulary)] 1 tab PO DAILY Calcium Citrate/Vitamin D3 [Calcitrate + Vit D Caplet] 2 cap PO HS Chromium Picolinate 500 mcg PO DAILY Aspirin [Adult Low Dose Aspirin EC] 81 mg DAILY Discontinued Metoprolol Tartrate [Lopressor] 12.5 mg DAILY No Action amLODIPine [Norvasc] 10 mg DAILY Discharge Medication List Multivitamins, Thera [Multivitamin (formulary)] 1 tab PO DAILY 12/22/16 [History ] Eden-3 Fatty Acids/Fish Oil [Fish Oil 1,000 mg Softgel] 1 cap PO DAILY [History] Thyroid, Pork [Fertile Thyroid] 15 mg PO DAILY 12/22/16 [History] Timolol 0.5% Ophth Soln [Timoptic 0.5% Ophth Soln] 1 drop BOTH EYES BID [History] Calcium Citrate/Vitamin D3 [Calcitrate + Vit D Caplet] 2 cap PO HS 12/23/16 [ History] Chromium Picolinate 500 mcg PO DAILY 12/23/16 [History] Aspirin [Adult Low Dose Aspirin EC] 81 mg DAILY 12/25/16 [History] amLODIPine [Norvasc] 10 mg DAILY 12/25/16 [History] Follow up Appointment(s)/Referral(s): Suleiman Mari DO [Primary Care Provider] - 1-2 days Tony Osei MD [STAFF PHYSICIAN] - 12/28/16 8:30 am Alis Williamson MD [STAFF PHYSICIAN] - 2 Weeks Patient Instructions/Handouts: *Surgery [facility] - After Heart Catheterization - Locomotive Firer/Fireman Instructions Activity/Diet/Wound Care/Special Instructions: See Activity Restriction Instructions Discharge Disposition: HOME SELF-CARE
[2016-12-25] MEDS ORDERED: amLODIPine 5 MG TAB PO SCH (21:00)
[2016-12-26] MEDS ORDERED: ASPIRIN 81 MG CHEW PO SCH (09:00)
--- NOTE | 2016-12-26 12:38 | CC ---
CARDIAC CATHETERIZATION REPORT DATE OF SERVICE: 12/25/2016. PROCEDURE: Left heart catheterization coronary angiography. PERFORMED BY: Dr. Ron Osei Mrs. Macrina Toney is a 66-year-old lady with a history of chest discomfort, positive stress test in the hospital. She also seems to have hypertension with concentric LVH. I advised cardiac catheterization because of abnormal stress test with ischemia in the lateral wall distribution. PROCEDURE: Under local anesthesia and strict aseptic precautions, a 6-Maori introducer was placed in the right radial artery. Using ultimate 1 catheter I performed selective coronary angiography of the left system and then used a right Shawnee catheter for selective injection of the RCA. Same catheter was used to check the LV pressure but LV-gram was not performed. The sheath was taken out and Tracelet applied with good hemostasis. The patient tolerated the procedure well without complications. Moderate conscious sedation was provided for a total duration of 25 minutes. CARDIAC CATHETERIZATION FINDINGS: The left ventricle end-diastolic pressure was about 14 mmHg. There was no gradient across aortic valve. CORONARY ANGIOGRAPHY FINDINGS: Right coronary artery: Technically a nondominant vessel, small in size and distribution. No significant disease. Left main coronary artery: Short patent disease-free vessel that bifurcates into an LAD and dominant circumflex. No significant disease in the left main. Left anterior descending coronary artery: Good caliber vessel, gives off septal and diagonal branches. It runs all the way to the apex, tortuous, supplies a sizable amount of myocardium. has minor irregularities. No significant disease. Left posterior circumflex coronary artery: Technically dominant vessel gives off a large obtuse marginal. Distally gives off a PDA and PLV both of which supplies a fair amount of myocardium. There is no significant disease in the dominant circumflex system other than minor irregularities. Left ventriculogram was not performed. FINAL IMPRESSION: This patient has left dominant system, acceptable filling pressures, minor irregularities and no significant obstructive coronary artery disease. Findings and results were discussed with the patient, her son and also her boyfriend. Patient will be discharged later on today if she remains stable and I will see her in the office on Wednesday. Discharge instructions were given. I am advising a combination of a small dose of beta etelvina and Norvasc. The patient can be discharged later this evening if she is stable. Saturation of the fingers of the right hand was excellent. MMODL / IJN: [id number] /
== END 2016-12-25 18:28 | disposition home or self-care (01) ==
LOC: EC 20:16 → 3OBS 12-23 00:21
PROVIDERS: ADMIT Internal Medicine; ATTEND Internal Medicine
DX: R07.89 Other chest pain (principal); R06.02 Shortness of breath; K80.20 Calculus of gallbladder without cholecystitis without obstruction; E03.9 Hypothyroidism, unspecified; M54.6 Pain in thoracic spine; E66.9 Obesity, unspecified; Z79.899 Other long term (current) drug therapy; Z68.34 Body mass index [BMI] 34.0-34.9, adult; R07.2 Precordial pain; R94.31 Abnormal electrocardiogram [ECG] [EKG]; I10 Essential (primary) hypertension; R74.0 Nonspecific elevation of levels of transaminase and lactic acid dehydrogenase [LDH]; R94.39 Abnormal result of other cardiovascular function study
CPT/HCPCS: 99152; 99153; 99285; 36415; 94760; 93005; 93017; 93306; 93458; 85379; 80061; 80053; 82150; 82550 ×2; 82553 ×2; 83690; 83735; 84484 ×2; 85025; 85610; 85730; 71020; 76705; 71275; 78452; G0378 ×3; C1769; C1894; A9500; J2001; J2250; J1200; Q9967 ×2; J3010; J1644; J2785